=== PATIENT | male | born 1995 | race Two or more races ===

== ENCOUNTER 2016-08-27 20:22 | Emergency (ER) | payer SELFPAY ==
[~2016-08-27] VITALS: Ht 177.8 cm; Wt 65.8 kg
[2016-08-27] MEDS ORDERED: PREDNISONE20 MG ORAL (21:35)
[2016-08-27] MEDS ORDERED: BENADRYL25 MG ORAL (21:35)
[2016-08-27 21:45] VITALS: BP 115/81
--- NOTE | 2016-08-28 05:21 | Emergency Room Report ---
History of Present Illness General Chief Complaint: Skin Rash/Abscess Source: Patient Present Illness HPI Patient presents with complaints of rash Ongoing for the past 2 days mainly localized to the left proximal forearm and distal humerus patient also noticed some area on the left flank abdominal region He had gone ice-skating He felt initial hives which initially subsided However since then now he has continued with the rash and the left arm Denies any fevers or chills Denies any chest pressures of breath The area appears to be fairly well localized to the left upper arm area Patient was up-to-date with immunizations denies any intraoral lesions Allergies: Coded Allergies: No Known Allergies (Unverified , 08/27/16) Patient History Past Medical History: see triage record Pertinent Family History: none Reviewed Nursing Documentation: PMH: Agreed, PSxH: Agreed Review of Systems All Other Systems: negative except mentioned in HPI Physical Exam Vital Signs Date Time Temp Pulse Resp B/P Pulse Ox O2 Delivery O2 Flow Rate FiO2 08/27/16 21:05 98.6 76 17 111/78 98 Room Air Sp02 EP Interpretation: reviewed, normal General Appearance: well appearing, no apparent distress Head: normocephalic, atraumatic Eyes: bilateral eye EOMI, bilateral eye PERRL ENT: normal pharynx Neck: full range of motion, supple, thyroid normal Respiratory: lungs clear, normal breath sounds Cardiovascular #1: regular rate, rhythm Musculoskeletal: normal inspection Neurologic: alert, oriented x3, responsive Skin: other - Patient has evidence of a dermatitis involving the proximal left forearm on the palmar aspect also the distal humeral area, several areas of mild raised erythematous lesions appear to be 2 x 2 in nature, was also several similar lesions in the left flank area, no blister formation does not appear to be dermatomal, , Lymphatic: no adenopathy Medical Decision Making Diagnostic Impression: Primary Impression: Rash and other nonspecific skin eruption ER Course Patient is somewhat of a nonspecific dermatitis consideration for insect bite versus contact dermatitis made Patient was treated symptomatically I do not appreciate any obvious target cell appearance or other emergent type pathology Patient is otherwise hemodynamically stable does not appear septic or toxic in a stable for initial conservative outpatient trial Last Vital Signs Date Time Temp Pulse Resp B/P Pulse Ox O2 Delivery O2 Flow Rate FiO2 08/27/16 21:45 98.4 79 19 115/81 99 Room Air Status: unchanged Disposition: HOME, SELF-CARE Condition: Stable Scripts Diphenhydramine Hcl* (BENADRYL*) 25 Mg Capsule 25 MG ORAL Q6H Y for Itching for 5 Days, CAP Prov: ARACELI GOSS D.O. 08/27/16 Prednisone* (PREDNISONE*) 20 Mg Tablet 20 MG ORAL BID, #5 TAB Prov: ARACELI GOSS D.O. 08/27/16 Referrals: NOT CHOSEN IPA/MD,REFERRING (PCP) Patient Instructions: Rash Additional Instructions: Patient is provided with the discharge instructions notified to follow up with primary doctor in the next 2-3 days otherwise return to the er with any worsening symptoms. ARACELI GOSS D.O. Aug 28, 2016 05:21
== END 2016-08-27 21:45 | disposition home or self-care (01) ==
LOC: EMR 21:30
DX: R21 Rash and other nonspecific skin eruption (principal)
CPT/HCPCS: 99284

== ENCOUNTER 2017-01-28 15:11 | Emergency (ER) | payer OTHER ==
[~2017-01-28] VITALS: Ht 177.8 cm; Wt 67.1 kg
[~2017-01-28 15:11] MED LIST: BENADRYL25 MG ORAL; PREDNISONE20 MG ORAL
[2017-01-28] MEDS ORDERED: IBUPROFEN600 MG ORAL (16:09)
[2017-01-28 16:15] VITALS: BP 100/61
--- NOTE | 2017-01-28 16:35 | Diagnostic Imaging Report ---
Indications: Left foot pain Technique: 3 views of the left foot Findings: Comparison: None. No fracture, dislocation, lytic destruction, periosteal reaction, surrounding soft tissue swelling, or other acute changes are demonstrated. No deformity, alignment abnormality, arthritic change, soft tissue calcification, or other chronic changes are demonstrated. IMPRESSION: Negative left foot series.
--- NOTE | 2017-01-28 16:40 | Emergency Room Report ---
History of Present Illness General Chief Complaint: Lower Extremity Injury Source: Patient Present Illness HPI The patient is a 21-year-old male presenting for left foot pain after skateboarding yesterday. The patient states that he jumped off of stairs and landed on the left foot. Pain is described as a 3/10 dull ache and does not radiate. Pain worse with walking. He denies previous injury to the foot or ankle. He denies any other injury or symptoms Allergies: Coded Allergies: No Known Allergies (Unverified , 08/27/16) Patient History Past Medical History: see triage record Pertinent Family History: none Reviewed Nursing Documentation: PMH: Agreed, PSxH: Agreed Nursing Documentation-PMH Past Medical History: No Stated History Review of Systems All Other Systems: negative except mentioned in HPI Physical Exam Vital Signs Date Time Temp Pulse Resp B/P Pulse Ox O2 Delivery O2 Flow Rate FiO2 01/28/17 15:18 97.5 76 14 100/61 100 Room Air Sp02 EP Interpretation: reviewed, normal General Appearance: no apparent distress, alert, GCS 15, non-toxic Head: normocephalic, atraumatic Eyes: bilateral eye PERRL, bilateral eye normal inspection Neck: full range of motion, supple/symm/no masses Musculoskeletal: swelling - L lateral foot, tender - TTP over the L lateral foot. No ankle tenderness or swelling Neurologic: alert, oriented x3, responsive, motor strength/tone normal, sensory intact, speech normal Psychiatric: judgement/insight normal, memory normal, mood/affect normal, no suicidal/homicidal ideation Skin: normal color, no rash, warm/dry, well hydrated Lymphatic: no adenopathy Procedures Splinting Splinting : Consent: Verbal Location: L foot Pre-Made Type: PANCHO wrap Pre-Proc Neuro Vasc Exam: normal Post-Proc Neuro Vasc Exam: normal Patient Tolerated: Well Complications: None Medical Decision Making PA Attestation Dr. Mabry is my supervising physician. Patient management was discussed with my supervising physician Diagnostic Impression: Primary Impression: Foot contusion Qualified Codes: S90.32XA - Contusion of left foot, initial encounter ER Course The patient is a 21-year-old male presenting for left foot pain Ddx considered include but not limited to sprain/strain, fracture, contusion Physical exam: There is tenderness to palpation with overlying soft tissue swelling of the left lateral foot proximal to the fifth MTP. There is no ankle tenderness or swelling. Full active range of motion of the ankle and toes. Normal gait X-rays unremarkable Pancho wrap is placed over the foot and ankle The patient is discharged home with pain medication. He is given rice instructions. ER precautions given Other X-Ray Diagnostic Results X-Ray ordered: L foot # of Views/Limited Vs Complete: 3 View Interpretation: no fractures, no dislocation, no soft tissue swelling Indication: Pain Impression: No acute disease Date Electronically Signed: Jan 28, 2017 Time Electronically Signed: 22:01 Interpreting ER Physician: Dr. Clotilde ZARAGOZA Scribe Text I am acting as scribe for my supervising physician. My supervising physician's interpretation of the L foot xrays are there are no fractures, dislocations or soft tissue swelling. Last Vital Signs Date Time Temp Pulse Resp B/P Pulse Ox O2 Delivery O2 Flow Rate FiO2 01/28/17 16:15 97.6 67 16 100/61 100 Room Air Status: improved Disposition: HOME, SELF-CARE Condition: Improved Scripts Ibuprofen* (MOTRIN*) 600 Mg Tablet 600 MG ORAL Q8H Y for For Pain, #30 TAB 0 Refills Prov: FELICIA BARRIGA 01/28/17 Patient Instructions: Foot Contusion Additional Instructions: I discussed my findings with the patient. All questions and concerns have been answered. Treatment and medication compliance have been addressed. I advised the patient that they need to follow up with PMD in 3-5 days. Return to ED if pain remains or worsens, numbness or tingling occurs, new rash is noticed, fever is noticed, or if needed for any reason. Patient verbalized understanding of discharge instructions. FELICIA BARRIGA Jan 28, 2017 16:40
== END 2017-01-28 16:17 | disposition home or self-care (01) ==
LOC: EMR 15:35
DX: S90.32XA Contusion of left foot, initial encounter (principal); V00.131A Fall from skateboard, initial encounter; Y92.9 Unspecified place or not applicable
CPT/HCPCS: 29540; 99283

== ENCOUNTER 2018-02-02 20:53 | Emergency (ER) | payer OTHER ==
[~2018-02-02] VITALS: Ht 177.8 cm; Wt 68.0 kg
[~2018-02-02 20:53] MED LIST changes: +IBUPROFEN600 MG ORAL
[2018-02-02] MEDS ORDERED: NKM (21:25)
[2018-02-02] MEDS ORDERED: IBUPROFEN600 MG ORAL (21:54)
--- NOTE | 2018-02-02 21:54 | Emergency Room Report ---
History of Present Illness General Chief Complaint: Upper Extremity Injury Source: Patient Present Illness HPI Is a 22-year-old male who is right-hand dominant. He presents with right thumb pain. He was skateboarding and fell. He said his but landed on his right thumb and he twists his thumb. Complaining of pain to the distal joint. Worse with movement. Onset was acute and occurred prior to arrival. No other injury. Did not pass out. We'll head injury. 7 out of 10. Worse with movement. Allergies: Coded Allergies: No Known Allergies (Unverified , 08/27/16) Patient History Past Medical History: none, see triage record, old chart reviewed Past Surgical History: none Pertinent Family History: none Social History: Denies: smoking Immunizations: other Reviewed Nursing Documentation: PMH: Agreed; PSxH: Agreed Nursing Documentation-PMH Past Medical History: No Stated History Review of Systems Eye: Denies: eye pain, blurred vision ENT: Denies: ear pain, nose congestion, throat swelling Respiratory: Denies: cough, shortness of breath Cardiovascular: Denies: chest pain, palpitations Gastrointestinal: Denies: abdominal pain, diarrhea, nausea, vomiting Musculoskeletal: Reports: joint pain; Denies: back pain Skin: Denies: rash Neurological: Denies: headache, numbness Endocrine: Denies: increased thirst, increased urine Hematologic/Lymphatic: Denies: easy bruising All Other Systems: negative except mentioned in HPI Physical Exam Vital Signs Date Time Temp Pulse Resp B/P (MAP) Pulse Ox O2 Delivery O2 Flow Rate FiO2 02/02/18 21:21 98.7 81 16 103/63 99 Room Air 98.8 vitals normal Sp02 EP Interpretation: reviewed, normal General Appearance: well appearing, no apparent distress, alert Head: normocephalic, atraumatic Eyes: bilateral eye PERRL, bilateral eye EOMI ENT: hearing grossly normal, normal pharynx Neck: full range of motion, supple, no meningismus Respiratory: chest non-tender, lungs clear, normal breath sounds Cardiovascular #1: regular rate, rhythm, no murmur Gastrointestinal: normal bowel sounds, non tender, no mass, no organomegaly, no bruit, non-distended Musculoskeletal: back normal, gait/station normal, normal range of motion, other - Right thumb: Tenderness over the DIP joint. No deformity. No swelling. Full range of motion. Sensation normal. Neurologic: alert, oriented x3 Psychiatric: mood/affect normal Skin: warm/dry Procedures Splinting Splinting : Consent: Verbal Location: Right thumb Pre-Made Type: metal Pre-Proc Neuro Vasc Exam: normal Post-Proc Neuro Vasc Exam: normal Patient Tolerated: Well Complications: None Medical Decision Making Diagnostic Impression: Primary Impression: Sprain of interphalangeal joint of right thumb, initial encounter ER Course Patient with a sprain of the right thumb. No fracture dislocation. Patient splinted. We'll discharge home. Other X-Ray Diagnostic Results Other X-Ray Diagnostic Results : X-Ray ordered: Right thumb x-rays # of Views/Limited Vs Complete: 3 View Indication: Pain EP Interpretation: Yes Interpretation: no dislocation, no soft tissue swelling, no fractures Impression: No acute disease Electronically Signed by: Martin Garcia MD Last Vital Signs Date Time Temp Pulse Resp B/P (MAP) Pulse Ox O2 Delivery O2 Flow Rate FiO2 02/02/18 21:21 98.7 81 16 103/63 99 Room Air 98.8 Status: improved Disposition: HOME, SELF-CARE Condition: Stable Scripts Ibuprofen* (MOTRIN*) 600 Mg Tablet 600 MG ORAL THREE TIMES A DAY, #30 TAB 0 Refills Prov: MARTIN GARCIA M.D. 02/02/18 Additional Instructions: Follow-up with your doctor in 7 days. Ice pack to the area. Return if worse. MARTIN GARCIA M.D. Feb 02, 2018 21:54
[2018-02-02 21:55] VITALS: BP 103/63
[2018-02-02 22:00] VITALS: BP 103/63
--- NOTE | 2018-02-03 12:27 | Diagnostic Imaging Report ---
Indication: Trauma. Thumb pain Technique: 3 views of the right thumb Comparison: none Findings: No acute fractures. No dislocations. The joint spaces are preserved Impression: Negative
== END 2018-02-02 22:00 | disposition home or self-care (01) ==
LOC: EMR 21:55
DX: S63.621A Sprain of interphalangeal joint of right thumb, initial encounter (principal); W19.XXXA Unspecified fall, initial encounter; Y93.51 Activity, roller skating (inline) and skateboarding; Y92.9 Unspecified place or not applicable
CPT/HCPCS: 99283